=== PATIENT | female | born 1990 | race African-American/Black ===

== ENCOUNTER 2018-07-24 16:46 | Day surgery (SDC) | payer OTHER ==
[~2018-07-24 16:46] MED LIST: Ondansetron HCl/PF 4 MG/2 ML Vial ONE; PROPOFOL 200 MG/20 ML VIAL ONE
[2018-07-24] MEDS ORDERED: Morphine 4 MG/ML VIAL ONE ×2 (17:01→18:31)
[2018-07-24] MEDS ORDERED: Ondansetron ODT 4 MG TAB ONE (17:05)
[2018-07-24] MEDS ORDERED: cloNIDine 0.1 MG TAB ONE (17:57)
--- NOTE | 2018-07-24 18:25 | RAD ---
RIGHT SHOULDER 2 VIEWS: Date: 07/24/18 HISTORY: Right shoulder pain. FINDINGS/IMPRESSION: No fracture or dislocation is seen. POS: [facility]
[2018-07-24] MEDS ORDERED: Lorazepam 2 MG/ML VIAL ONE (18:36)
--- NOTE | 2018-07-24 23:09 | RAD ---
RIGHT SHOULDER ONE VIEW: 07/24/18 FINDINGS/IMPRESSION: Single spot fluoroscopic image of the right shoulder demonstrates interval reduction of the dislocati on noted on earlier exam of 5:17 p.m. POS: [facility]
--- NOTE | 2018-07-25 15:14 | OP ---
DATE OF SURGERY: 07/24/2018 PREOPERATIVE DIAGNOSIS: Right anterior inferior shoulder dislocation. POSTOPERATIVE DIAGNOSIS: Right anterior inferior shoulder dislocation. SURGICAL PROCEDURE: Closed reduction of right shoulder dislocation. ANESTHESIA: General. SURGEON: Reyes Mcmillan M.D. IMPLANTS: None. COMPLICATIONS: None. DRAINS: None. SPECIMEN: None. INDICATIONS: Ms. Adam is a 27-year-old lady who has a history of multiple recurrent right shoulder dislocations. Earlier today, she was just extending at her shoulder with slight external rotation an d sustained an anterior dislocation. An attempt was made at reduction in the emergency room; however , they were unable to get adequate sedation and feel that they have maxed out on the volume of sedati on they can provide in the emergency room setting. As such, the patient now brought to the operating room for closed reduction under anesthesia. DESCRIPTION OF PROCEDURE: The patient was brought to the operating room and a timeout performed foll owed by induction of general anesthesia. Next, a simple closed reduction was performed by bringing t he arm into forward elevation of approximately 90 degrees and then just applying slight internal and external rotation. This resulted in an audible and palpable reduction of the glenohumeral joint. Fo llowing reduction, AP shoulder x-ray confirmed reduction. As such, the patient was awoken in the ope rating room and then transferred to recovery room in stable condition. There were no complications a nd she tolerated the procedure well.
== END 2018-07-24 22:50 | disposition home or self-care (01) ==
LOC: ERS 16:46 → SDC 20:33
PROVIDERS: ATTEND Orthopaedic Surgery
PROC: 0RSJXZZ Reposition Right Shoulder Joint, External Approach (ICD-10-PCS; principal; 2018-07-24)
DX: S43.004A Unspecified dislocation of right shoulder joint, initial encounter (principal)
CPT/HCPCS: 76000; 96372; 96374; 96375; 99152; J2060; J2270; J2405; J2704; Q0162